=== PATIENT | male | born 1985 ===

== ENCOUNTER 2018-11-28 10:47 | Outpatient (CLI) | payer OTHER | END 2018-11-28 10:48 | disposition home or self-care (01) | LOC: C.USH 10:47 | DX: R35.1 Nocturia (principal); R35.0 Frequency of micturition ==

== ENCOUNTER 2018-11-30 16:12 | Outpatient (CLI) | payer OTHER | END 2018-11-30 16:13 | disposition home or self-care (01) | LOC: C.USIC 16:13 | DX: R35.0 Frequency of micturition (principal); R35.1 Nocturia ==